=== PATIENT | female | born 1975 | race Caucasian/White ===

== ENCOUNTER 2022-01-09 11:47 | Emergency (ER) | payer OTHER, SELFPAY ==
[2022-01-09 12:45] VITALS: BP 103/69; PULSE 68; RESP 18; TEMP 36.6; O2SAT 100
--- NOTE | 2022-01-09 13:20 | ED.URI ---
HPI - URI/Sore Throat General Chief Complaint: Upper Respiratory Infection Stated Complaint: sorethroat Source: patient and family Mode of arrival: ambulatory Limitations: no limitations History of Present Illness HPI Narrative: 46-year-old female presents to [facility] with complaints of sore throat since yesterday. Patient reports that she did have small amount of diarrhea this morning. Patient has not tried taking any [id number] medications for her symptoms. Patient denies cough, congestion, runny nose, nausea, vomiting, diarrhea, shortness of breath or wheezing. MD elicited complaint: sore throat Onset (ago): day(s) (1) Able to tolerate fluids by mouth: Yes Exacerbating factors: swallowing Associated symptoms: diarrhea Treatments prior to arrival: none Related Data Home Medications Medication Instructions Recorded Confirmed levonorgestrel 20 mcg/24 hours (8 1 device intrauterine ONCE 01/09/22 01/09/22 yrs) 52 mg intrauterine device (Mirena) Allergies Allergy/AdvReac Type Severity Reaction Status Date / Time No Known Allergies Allergy Verified 01/09/22 13:22 Review of Systems Constitutional: Constitutional: Denies chills, Denies fatigue, Denies fever(s) and Denies weakness ENT: Denies dizziness Comments: Sore throat Cardiovascular: Cardiovascular: Denies chest pain, Denies rapid heart rate, Denies radiating jaw, neck or arm pain and Denies slow heart rate Respiratory: Respiratory: Denies chest congestion, Denies cough, Denies dyspnea and Denies wheezing Gastrointestinal: Gastrointestinal: Denies abdominal pain, Reports diarrhea, Denies nausea and Denies vomiting Integumentary/Breasts: Skin/Breast: Denies rash PMFSH Social History Social History (Updated 01/09/22 @ 13:23 by Megan Velez, [employer]) Smoking status: Never smoker Comments At time of signature, I agree with nursing past medical, surgical, social and family history. There is no relevant family history pertinent to the presenting complaint. Exam Const: General: healthy appearing Nutritional Appearance: well nourished Orientation/consciousness: patient oriented x3 Limitations: no limitations HENMT: Head: normal to inspection Ears: external ears normal and TM's normal bilaterally Face/Nose/Sinus: Normal external nose present and Normal nares present Mouth: Yes Normal oral and palatal mucosa present and Yes moist mucous membranes Teeth and gingiva: dentition normal Throat: posterior oropharynx normal and uvula midline Eyes: Conjunctivae: conjunctivae normal Neck: Neck: normal visual inspection Resp: Effort & Inspection: normal respiratory effort and not labored Auscultation: clear to auscultation bilaterally, no crackles, no rales and no rhonchi Cardio: Rate: regular rate Rhythm: regular rhythm Heart sounds: no murmurs Skin: General skin exam: normal color Rashes: no rashes Wounds: no wounds Neuro: General: patient oriented x3 Speech: normal speech Gait exam (Neuro): Normal gait present Psych: Mental Status: mental status grossly normal Affect: normal affect Attitude: cooperative Course Course Level of Care: Express Care Visit Vital Signs Vital signs: Vital Signs Temperature 36.6 C 01/09/22 12:45 Pulse Rate 68 01/09/22 12:45 Respiratory Rate 18 01/09/22 12:45 Blood Pressure 103/69 01/09/22 12:45 Pulse Oximetry 100 01/09/22 12:45 Oxygen Delivery Room Air 01/09/22 12:45 Temperature 36.6 C 01/09/22 12:45 Pulse Rate 68 01/09/22 12:45 Respiratory Rate 18 01/09/22 12:45 Blood Pressure 103/69 01/09/22 12:45 Pulse Oximetry 100 01/09/22 12:45 Oxygen Delivery Room Air 01/09/22 12:45 MDM - URI/Sore Throat MDM Narrative Medical decision making narrative: Discussed negative lab results with patient. Instructed patient to alternate Motrin and Tylenol as needed. Instructed patient to proceed to the emergency room if symptoms worsen Differential Diagnosis D
== END 2022-01-09 13:55 | disposition home or self-care (01) ==
PROVIDERS: Emergency Provider Nurse Practitioner Family
DX: B34.9 Viral infection, unspecified (principal); Z20.822 Contact with and (suspected) exposure to COVID-19
CPT/HCPCS: 87081; 87426; 87804; 87880; 99203; C9803; G0463